=== PATIENT | female | born 1950 | race Asian ===

== ENCOUNTER → 2019-03-26 | Outpatient (CLI) | payer MEDICARE, OTHER ==
--- NOTE | 2019-03-29 07:54 | BD ---
EXAMINATION TYPE: Axial Bone Density DATE OF EXAM: 03/26/2019 COMPARISON: NONE CLINICAL HISTORY: Height: 61.5 IN Weight: 109 LBS RISK FACTORS HISTORY OF: Active: YES Diet low in dairy products/other sources of calcium: YES Postmenopausal woman: AGE 51 MEDICATIONS: Additional Medications: CALCIUM, VIT D, MULTI VIT, CHOLESTEROL MEDS EXAM MEASUREMENTS: Bone mineral densitometry was performed using the [email or web address] System. Bone mineral density as measured about the Lumbar spine is: ----- L1-L4(G/cm2): 0.979 T Score Values are as follows: ----- L2: -2.0 ----- L3: -1.1 ----- L4: -1.6 ----- L1-L4: -1.7 Bone mineral density BASELINE Bone mineral density about the R hip (g/cm2): 0.746 Bone mineral density about the L hip (g/cm2): 0.767 T Score values are as follows: -----R Neck: -2.1 -----L Neck: -2.0 -----R Total: -2.0 -----L Total: -1.7 Bone mineral density BASELINE IMPRESSION: Osteopenia (T Score between -2.5 and -1). There is slightly increased risk of fracture and the patient may be considered for treatment. Re-Screen 2-5 years. NOTE: T-SCORE=SD OF THE YOUNG ADULT MEAN.
--- NOTE | 2019-03-29 10:36 | MM ---
Reason for exam: screening (asymptomatic). History: Patient is postmenopausal. Family history of breast cancer at age 45. Physical Findings: A clinical breast exam by your physician is recommended on an annual basis and results should be correlated with mammographic findings. MG 3D Screening Mammo W/Cad Bilateral CC and MLO view(s) were taken. No prior studies available for comparison. The breast tissue is heterogeneously dense. This may lower the sensitivity of mammography. There is no discrete abnormality. ASSESSMENT: Negative, BI-RAD 1 RECOMMENDATION: Routine screening mammogram of both breasts in 1 year.
== END ==
LOC: RADMAMWWP 14:59
PROVIDERS: ATTEND Family Medicine
DX: Z12.31 Encounter for screening mammogram for malignant neoplasm of breast (principal); M85.80 Other specified disorders of bone density and structure, unspecified site; Z78.0 Asymptomatic menopausal state
CPT/HCPCS: 77063; 77067; 77080

== ENCOUNTER → 2019-12-22 | Outpatient (CLI) | payer MEDICARE, OTHER ==
--- NOTE | 2019-12-23 09:13 | USB ---
Reason for exam: clinical finding. History: Patient is postmenopausal. Family history of breast cancer at age 45. Benign excisional biopsy of the right breast, 1994. Indicated problem(s): pain in the right breast. 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 US Breast RT Right complete breast ultrasound includes all four quadrants, the retroareolar region and axilla. Finding demonstrates no cystic or solid lesion seen. These results were verbally communicated with the patient and result sheet given to the patient on 12/22/19. ASSESSMENT: Negative, BI-RAD 1 RECOMMENDATION: Return to routine screening mammogram schedule for both breasts. Back on schedule. Manage on a clinical basis with regard to pain.
== END | disposition home or self-care (01) ==
LOC: RADUSWWP 10:02
PROVIDERS: ATTEND Family Medicine
DX: N64.4 Mastodynia (principal)

== ENCOUNTER → 2021-12-13 | Outpatient (CLI) | payer MEDICARE, OTHER ==
--- NOTE | 2021-12-14 12:04 | MM ---
Reason for Exam: Screening (asymptomatic). Last mammogram was performed 2 year(s) and 8 month(s) ago. Patient History: Menarche at age 15. First Full-Term at age 24. Postmenopausal. 1994, Benign Excisional Biopsy on the right side. Maternal unspecified had breast cancer, age 45. Risk Values: [place] 5 year model risk: 1.7%. NCI Lifetime model risk: 4.7%. Film Views: Bilateral CC views were taken. Bilateral MLO views were taken. Prior Study Comparison: 03/26/2019 Bilateral Screening Mammogram, [facility]. Tissue Density: The breast tissue is heterogeneously dense. This may lower the sensitivity of mammography. Findings: Analyzed By CAD. Stable single benign appearing calcification anteriorly in the left breast. There is no suspicious group of microcalcifications or new suspicious mass in either breast. Overall Assessment: Benign, BI-RAD 2 Management: Screening Mammogram of both breasts in 1 year. A clinical breast exam by your physician is recommended on an annual basis and results should be correlated with mammographic findings. Electronically signed and approved by: Joao Sharp M.D.
== END | disposition home or self-care (01) ==
LOC: RADMAMWWP 16:35
PROVIDERS: ATTEND Family Medicine
DX: Z12.31 Encounter for screening mammogram for malignant neoplasm of breast (principal)
CPT/HCPCS: 77063; 77067

== ENCOUNTER → 2022-02-15 | Outpatient (CLI) | payer MEDICARE, OTHER ==
--- NOTE | 2022-02-15 14:41 | XR ---
EXAMINATION TYPE: XR chest 2V DATE OF EXAM: 02/15/2022 COMPARISON: None INDICATION: Chronic cough TECHNIQUE: Frontal and lateral views of the chest are obtained. FINDINGS: The heart size is normal. The pulmonary vasculature is normal. There is a 1.1 m rounded density with smooth margins in the lateral right lung field. This is not tg mohamud evident on the lateral projection. Follow-up is recommended. There is a 2.2 cm increased density at the left lung base with ill-defined margins. Additional workup is recommended. IMPRESSION: 1. Densities at the bilateral lung bases. Consider follow-up CT chest. Mass and infection should be c onsidered on the left.
== END | disposition home or self-care (01) ==
LOC: RADXRMAIN 14:16
PROVIDERS: ATTEND Family Medicine
DX: R05.3 Chronic cough (principal)
CPT/HCPCS: 71046

== ENCOUNTER → 2022-02-28 | Outpatient (CLI) | payer MEDICARE, OTHER ==
[2022-02-28 13:25] LABS: African American GFR (CKD) >90 (>60 ml/min/1.73 sqM); Blood Urea Nitrogen 17 mg/dL (7-17); Non-African American GFR(CKD) >90 (>60 ml/min/1.73 sqM)
--- NOTE | 2022-02-28 14:09 | CT ---
EXAMINATION TYPE: CT chest w con CT DLP: 127.9 mGycm, Automated exposure control for dose reduction was used. DATE OF EXAM: 02/28/2022 1:51 PM COMPARISON: Chest radiograph 02/15/2022 CLINICAL INDICATION:Female, 71 years old with history of R22.2 chest mass; , CHEST MASS, COUGH TECHNIQUE: Multiple axial images were obtained through the chest. Sagittal and coronal reformats were created for review. Contrast used:70 mL of Isovue 300 with IV Contrast, none. Oral contrast used: none. FINDINGS: LUNGS/ PLEURA: Scattered consolidation and groundglass opacities changes most pronounced in the left upper lobe also affecting the right posterior upper lobe, right lower lobe near the pulmonary hilum a nd left lower lobe. There is a calcified pleural plaque which correlates with right-sided density on prior chest radiograph measuring up to 11 mm. There is an additional right upper lobe 3 mm calcified pulmonary nodule. The other nodule seen in the chest on the left knee have been these left lower lobe ground glass opacities with the patient's nipple. AIRWAY: Patent and unremarkable. HEART: Size within normal limits. MEDIASTINUM: No gross evidence of adenopathy. Partially calcified lymph nodes are seen within the med iastinum. Left pulmonary hilum lymph node measuring up to 1.3 cm. VASCULATURE: No aortic aneurysm. MUSCULOSKELETAL: No acute osseous abnormalities SOFT TISSUES/LYMPH NODES: Unremarkable. LOWER NECK: No significant findings. UPPER ABDOMEN: There is a wedge-shaped area of enhancement within the liver right hepatic lobe. IMPRESSION: 1. Scattered consolidation changes most pronounced in the left upper lobe but also affecting the lef t lower lobe right lower lobe and right upper lobe concerning for infection. Findings are favored to represent pneumonia and less likely underlying mass in the left upper lobe. The groundglass areas are felt to represent an infectious/inflammatory process. 2. Indeterminate right hepatic lobe area of enhancement slightly wedge-shaped and may represent perf usion abnormality. A CT/MRI liver mass protocol with IV contrast would confirm this. 3. Densities on prior radiograph correlate with calcified plaque on the right and groundglass opacit ies superimposed on the patient's left nipple on the left. 4. Left pulmonary hilum 1.3 cm lymph node likely reactive to #1. Attention on follow-up imaging.
== END | disposition home or self-care (01) ==
LOC: RADCTMAIN 12:49
PROVIDERS: ATTEND Family Medicine
DX: R22.2 Localized swelling, mass and lump, trunk (principal)
CPT/HCPCS: 82565; 84520; 71260; 36415; Q9967

== ENCOUNTER → 2022-04-01 | Outpatient (CLI) | payer MEDICARE, OTHER ==
--- NOTE | 2022-04-02 06:42 | MR ---
EXAMINATION TYPE: MR liver wo/w con DATE OF EXAM: 04/01/2022 COMPARISON: HISTORY: Abnormal CT 02-28-22. CONTRAST: Standard multiplanar, multisequence MRI departmental protocol images were obtained without contrast a nd with 5 mL intravenous Gadavist gadolinium contrast. Lung bases show no pleural effusion. Spleen is intact. No evidence of pancreatic mass. The gallbladde r appears intact. The bile duct are not dilated. There are scattered 1 cm fluid densities in the live r consistent with simple cysts. No evidence of a solid liver mass. There is no adrenal mass. Kidneys have normal size and contour. No hydronephrosis. No retroperitoneal adenopathy. Pancreatic duct is not dilated. Contrast images show normal enhancement of the kidneys. There is normal enhancement of the portal marichuy ous system. There is some early enhancement in a somewhat linear distribution measuring 5 x 1.5 cm in the superior right lobe of the liver that is the area of high attenuation on the recent CT scan. Thi s is probably of vascular malformation. There is no ascites. IMPRESSION: There are small hepatic cysts. There is linear area of increased density in the superior right lobe o f the liver on the recent CT scan of 02/28/2022 that appears to show early enhancement with the IV con trast and I do not suspect tumor in view of the linear distribution. This could be vascular malformat ion..
== END | disposition home or self-care (01) ==
LOC: RADMRIMAIN 17:32
PROVIDERS: ATTEND Family Medicine
DX: R16.0 Hepatomegaly, not elsewhere classified (principal)
CPT/HCPCS: 74183; A9585

== ENCOUNTER → 2023-10-01 | Outpatient (CLI) | payer MEDICARE, OTHER ==
--- NOTE | 2023-10-05 23:58 | MM ---
Reason for Exam: Screening (asymptomatic). Last mammogram was performed 1 year(s) and 10 month(s) ago. Patient History: Menarche at age 15. First Full-Term at age 24. Postmenopausal. 1994, Benign Excisional Biopsy on the right side. Maternal unspecified had breast cancer, age 45. Risk Values: [place] 5 year model risk: 1.7%. NCI Lifetime model risk: 4.4%. Prior Study Comparison: 03/26/2019 Bilateral Screening Mammogram, [facility]. 12/13/2021 Bilateral MG 3D screening mammo w/cad, [facility]. Tissue Density: The breasts are heterogeneously dense, which may obscure small masses. Findings: Analyzed By CAD. There is no suspicious group of microcalcifications or new suspicious mass in either breast. Overall Assessment: Negative, BI-RAD 1 Management: Screening Mammogram of both breasts in 1 year. . Patient should continue monthly self-breast exams. A clinical breast exam by your physician is recommended on an annual basis. This exam should not preclude additional follow-up of suspicious palpable abnormalities. Note on [place] scores and lifetime risk: 1. A [place] score greater than 3% is considered moderate risk. If this is the case, consider specialist referral to assess eligibility for a risk reducing agent. 2. If overall lifetime risk for the development of breast cancer is 20% or higher, the patient may qualify for future screening with alternating mammogram and breast MRI. Electronically signed and approved by: Elena Delgado M.D. Radiologist
== END | disposition home or self-care (01) ==
LOC: RADMAMWWP 13:34
PROVIDERS: ATTEND Family Medicine
DX: Z12.31 Encounter for screening mammogram for malignant neoplasm of breast (principal); Z78.0 Asymptomatic menopausal state
CPT/HCPCS: 77063; 77067

== ENCOUNTER → 2024-10-29 | Outpatient (CLI) | payer MEDICARE, OTHER ==
--- NOTE | 2024-10-29 15:29 | US ---
EXAMINATION TYPE: US kidneys/renal and bladder DATE OF EXAM: 10/29/2024 COMPARISON: NONE CLINICAL INDICATION: Female, 73 years old with history of R10.9 R10.84; sensation of UTUI minus the b urning during urination TECHNIQUE: Grayscale imaging of the bilateral kidneys and urinary bladder: FINDINGS: EXAM MEASUREMENTS: Right Kidney: 9.7 x 4.8 x 5.3 cm Left Kidney: 9.8 x 4.8 x 5.9 cm Right Kidney: No hydronephrosis or masses seen Left Kidney: No hydronephrosis or masses seen Bladder: wnl There is no evidence for hydronephrosis at this point in time. No nephrolithiasis is seen. No rick s are identified. The urinary bladder is anechoic. IMPRESSION: No evidence for obstructive uropathy or renal calculus. [facility], , 10/29/2024 3:26 PM
== END | disposition home or self-care (01) ==
LOC: RADUSWWP 14:42
PROVIDERS: ATTEND Urology
DX: R10.9 Unspecified abdominal pain (principal); R10.84 Generalized abdominal pain
CPT/HCPCS: 76770